=== PATIENT | male | born 1950 | race Caucasian/White ===

== ENCOUNTER → 2019-08-07 07:47 | Outpatient (CLI) | payer MEDICARE, SELFPAY ==
--- NOTE | 2019-08-07 | DI.MRI.S_ITS ---
PROCEDURE: MR KNEE RT WO CON INDICATIONS: Unilateral primary osteoarthritis, right knee TECHNIQUE: Noncontrast sagittal PD fast spin echo and T2 fast spin echo with fat saturation, sagittal 3-D FLASH with fat saturation; coronal T1 spin echo and PD fast spin echo with fat saturation, and axial PD fast spin echo with fat saturation through the knee. COMPARISON: , MR, KNEE WITHOUT CONTRAST, 07/26/2017, 8:26. FINDINGS: Image quality: Excellent. Menisci: Subtle oblique tear involving posterior horn of medial meniscus is seen extending to the inferior articulating surface. There is no focal lateral meniscal tear. The meniscal root ligaments appear intact. Cruciate ligaments: The degenerative changes and low-grade intrasubstance partial-thickness tear involving anterior cruciate ligament is seen in its proximal insertion. No full thickness ACL rupture. PCL is intact.. Medial structures: Low-grade proximal MCL sprain near its femoral insertion is noted. The posterior oblique ligament, semimembranosus tendon insertions, oblique popliteal ligament, and meniscocapsular junction appear intact. Visualized portions of the pes anserinus tendons appear normal. No abnormal bursal fluid. Lateral structures: The lateral collateral ligament, long and short heads of the biceps femoris tendon appear intact. The popliteus tendon appears normal; the popliteofibular ligament appears intact. The posterosuperior and anteroinferior popliteomeniscal fascicles appear intact. The arcuate and fabellofibular ligaments appear intact, on either side of the lateral inferior geniculate artery. Iliotibial band appears normal. Anterior structures: The quadriceps and patellar tendons appear intact. Patellar alignment is normal. No femoral trochlear dysplasia or ventral trochlear prominence. No edema in the infrapatellar fat pad. Bones and cartilage: No bone marrow contusions or fractures. Mild medial femoral tibial compartment joint space narrowing and low-grade chondromalacia is seen. Articular cartilages in lateral femoral tibial compartment and patellofemoral compartment are intact. Joint space: There is small amount of joint fluid, no gross intra-articular loose body. No Warren's cyst. Normal appearing synovial plicae are incidentally noted. IMPRESSION: 1. Subtle oblique tear involving posterior horn of medial meniscus extending to the inferior articulating surface. No focal lateral meniscal tear. 2. 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 PCL is intact. No full thickness ACL rupture. 3. Low-grade proximal MCL sprain. 4. Mild osteoarthritis and low-grade chondromalacia and medial femorotibial compartment. Small joint effusion. Dictated by: Shahriar Castillo M.D. on 08/07/2019 at 9:44 Approved by: Shahriar Castillo M.D. on 08/07/2019 at 9:55
== END ==
PROVIDERS: Referring Provider Orthopaedic Surgery; Visit Provider Orthopaedic Surgery
DX: M17.11 Unilateral primary osteoarthritis, right knee (principal); S83.241A Other tear of medial meniscus, current injury, right knee, initial encounter; S83.511A Sprain of anterior cruciate ligament of right knee, initial encounter; S83.411A Sprain of medial collateral ligament of right knee, initial encounter; M94.261 Chondromalacia, right knee; M25.461 Effusion, right knee
CPT/HCPCS: 73721